=== PATIENT | male | born 1990 | race Hispanic/Latino ===

== ENCOUNTER 2022-04-02 19:12 | Emergency (ER) | payer MEDICAID ==
[2022-04-02 20:20] LABS: BASOPHILS % (AUTO) 0.4 % (0.0-5.0); EOSINOPHILS % (AUTO) 1.5 % (0.0-8.0); HEMATOCRIT 41.4 % (42-54); LYMPHOCYTES % (AUTO) 28.5 % (21.0-51.0); MEAN CORPUSCULAR HEMOGLOBIN 28.5 pg (27.0-33.0); MEAN CORPUSCULAR HGB CONC 35.3 g/dL (32.0-36.0); MEAN CORPUSCULAR VOLUME 80.7 fL (79-99); MONOCYTES % (AUTO) 8.5 % (3.0-13.0); NEUTROPHILS % (AUTO) 60.7 % (40.0-77.0); PLATELET COUNT (AUTO) 288 K/uL (130-400); RED BLOOD CELL COUNT(AUTO) 5.13 MIL/uL (4.50-6.20)
[2022-04-02 20:28] LABS: CARBON DIOXIDE 29 mmol/L (21-32); CHLORIDE 101 mmol/L (101-111); CREATININE 0.8 mg/dL (0.5-1.5); GLOMERULAR FILTR. RATE CALC 118 mL/min (>60); GLUCOSE,RANDOM 86 mg/dL (70-105); SODIUM SERUM 138 mmol/L (136-145); UREA NITROGEN, BLOOD 7 mg/dL (7-18)
[2022-04-02 20:32] LABS: ALANINE AMINOTRANSFERASE 19 U/L (12-78); ALBUMIN 3.6 g/dL (3.5-5.0); ALCOHOL, BLOOD 29 mg/dL (0-10); ASPARTATE AMINOTRANSFERASE 17 U/L (10-37); CREATINE KINASE, TOTAL 385 U/L (21-232); SALICYLATE 4.3 mg/dL (2.8-20.0); TOTAL PROTEIN, SERUM 7.5 g/dL (6.0-8.3)
[2022-04-02 20:34] LABS: ACETAMINOPHEN < 1 mcg/mL (10-29)
[2022-04-02] MEDS ORDERED: HALOPERIDOL INJ 5 MG/ML VIAL IV SCH (21:00)
[2022-04-02] MEDS ORDERED: KCL 20 MEQ ERTAB PO ONE (21:00)
[2022-04-02] MEDS ORDERED: HALOPERIDOL INJ 5 MG/ML VIAL IM SCH (21:30)
[2022-04-02 21:46] VITALS: BP 136/88
== END 2022-04-02 23:04 | disposition home or self-care (01) ==
LOC: EDH 19:12
DX: F41.9 Anxiety disorder, unspecified (principal); E87.6 Hypokalemia
CPT/HCPCS: 99284; 82550; 80053; 85025; 36415; 96372; 93005; G0481; J1630

== ENCOUNTER 2022-11-28 22:56 | Emergency (ER) | payer MEDICAID ==
[~2022-11-28] VITALS: Ht 167.6 cm; Wt 81.6 kg
[2022-11-28 22:58] VITALS: BP 119/73
== END 2022-11-29 00:44 | disposition home or self-care (01) ==
LOC: EDH 22:56
DX: Z02.89 Encounter for other administrative examinations (principal); F31.9 Bipolar disorder, unspecified; Z88.0 Allergy status to penicillin